=== PATIENT | female | born 1955 | race Asian ===

== ENCOUNTER → 2023-03-21 | Outpatient (CLI) | payer MEDICARE, OTHER ==
[~2023-03-21] MED LIST: METFORMIN; NORVASC
== END | disposition home or self-care (01) ==
LOC: RADPV 14:24
PROVIDERS: ATTEND Family Medicine
DX: Z76.89 Persons encountering health services in other specified circumstances (principal); M81.0 Age-related osteoporosis without current pathological fracture
CPT/HCPCS: 77080